=== PATIENT | male | born 1995 | race Caucasian/White ===

== ENCOUNTER 2019-12-14 17:59 | Outpatient (CLI) | payer BC, SELFPAY | END 2019-12-14 18:00 | disposition home or self-care (01) | LOC: ANHLAB 18:02 | PROVIDERS: PCP Family Medicine; Visit Provider Family Medicine | DX: A23.9 Brucellosis, unspecified (principal) | CPT/HCPCS: 36415; 86622 ==

== ENCOUNTER → 2020-08-05 16:18 | Outpatient (CLI) | payer BC, SELFPAY ==
--- NOTE | ~2020-08-05 | XR_ITS ---
XR elbow RT min 3V 08/05/2020 16:58 Indication: Right elbow pain Procedure: 4 views right elbow Comparison: No prior studies for comparison. Findings: Possible nondisplaced radial head fracture. Large joint effusion. No other fracture appreci ated. No foreign bodies. Impression: 1: Possible nondisplaced radial head fracture with large joint effusion. Recommend follow-up x-rays i n 7-10 days following conservative therapy. Reviewed, dictated and finalized at location A. Impression: 1: Possible nondisplaced radial head fracture with large joint effusion. Recomm end follow-up x-rays in 7-10 days following conservative therapy.
== END ==
PROVIDERS: PCP Family Medicine; Visit Provider Family Medicine
DX: S59.901A Unspecified injury of right elbow, initial encounter (principal)
CPT/HCPCS: 73080

== ENCOUNTER 2024-08-31 10:43 | Emergency (ER) | payer BC, SELFPAY ==
--- NOTE | 2024-08-31 10:48 | ED_ITS ---
HPI - General Adult General Chief complaint: Nausea/Vomiting/Diarrhea Stated complaint: TROUBLE EATING & SLEEPING/NAUSEA/LOW BLOOD SUGAR Time Seen by Provider: 08/31/24 11:03 Mode of arrival: ambulatory Limitations: no limitations History of Present Illness HPI narrative: 29-year-old male presents with concern for nausea, decreased appetite, fatigue for 1 month. Reports he felt shaky this morning and is concerned about his blood sugar. He does not have a history of problems with his blood sugar. He reports the symptoms started 1 month ago when he had cold symptoms. He saw his primary doctor that. Reports he initially had vomiting and diarrhea he has not had any vomiting or diarrhea 2 weeks. Reports his appetite is low and he can not eat very much not feeling nauseated. He reports his bowel movements are normal, is having a bowel movement daily. He occasionally has taken Pepto- Bismol and Mylanta without relief. He denies abdominal pain. Denies flank pain. Denies dysuria frequency, urgency, hematuria. Reports he has had a low back ache 1 month ago when this all started but that has since resolved and LEs he has done a lot of heavy lifting at work. complaint: Nausea Related Data Allergies Allergy/AdvReac Type Severity Reaction Status Date / Time No Known Allergies Allergy Verified 08/31/24 11:01 Review of Systems Review of Systems: CONSTITUTIONAL: Reports malaise, fatigue. Denies chills, sweats, or fever. EYES: Denies visual changes, redness, or discharge. ENT: Denies rhinorrhea, congestion, sinus pain, otalgia or sore throat. CARDIOVASCULAR: Denies chest pain, palpitations, or edema. RESPIRATORY: Denies cough or dyspnea. GASTROINTESTINAL: Denies abdominal pain, vomiting, diarrhea, bloody, or mucous stools. Reports nausea and decreased appetite GENITOURINARY: Denies dysuria or hematuria. MUSCULOSKELETAL: Reports occasional low back ache. Denies joint pain, or myalgia. NEUROLOGIC: Denies numbness, weakness, or headache. All systems reviewed & are unremarkable except as noted in HPI and below PMFSH Past Medical History Medical History Generalized anxiety disorder Social History Social History Smoking status: Never smoker Alcohol intake: never Substance use: never Substance use type: does not use Do You Feel Safe in your Home?: Yes Lack of Transportation: No Lack of Food: Never True Current Housing: I Have Housing Concerned About Future Housing: No Difficulty Paying Gas/Electric Bills: No Difficulty Paying for Meds: No Currently Unemployed: No Education: Bachelor's Degree Difficulty w/ Childcare or Family Care: No Living arrangements: with family Occupation/Education: occupation Additional occupation/education comments: [employer] Gender identity (if verbalized by the patient): Male Sexual Orientation (if Verbalized by the Patient): Straight or Heterosexual Comments At time of signature, agree with nursing past medical, surgical, social and family history. There is no relevant family history pertinent to the presenting complaint Exam Narrative: GENERAL: Well-appearing, well-nourished, and in no acute distress. HEAD: Normocephalic, atraumatic. EYES: PERRLA, sclera clear, and EOMI. No nystagmus. ENT: Nares clear. Mucous membranes moist. NECK: Supple. CHEST: No respiratory distress. Clear to auscultation. No bony deformities, no asymmetry. Speaks in full sentences. HEART: Regular rate and rhythm. ABDOMEN: Soft, nontender, nondistended, normal active bowel sounds, no palpable masses. EXTREMITIES: Normal range of motion. No edema. Normal strength and sensation. SKIN: Warm, dry, no visible rash. NEURO: Alert and oriented x3. PSYCH: Normal mood and affect Course Course Emergency Course: Patient is aware of diagnosis, understands and agrees to treatment plan. Anticipatory guidance given. Patient agrees to follow-up as directed and is aware of reasons to seek care at the emergency department. Portions of this record may have been created with voice recognition software Level of Care: Express Care Visit Vital Signs Vital signs: Reviewed. Medical Decision Making MDM Narrative Medical decision making narrative: The patient was evaluated by myself in the express care. History is obtained from patient who is an independent historian and physical exam was performed.? Available medical records were reviewed at this time. ? Exam findings show no acute concerns or changes; patient is non-toxic appearing and is in no distress. Patient is appropriate for outpatient treatment and follow-up. ? I have evaluated and discussed social determinants of health with the patient that could potentially impact subsequent diagnosis and treatment plans. ? Differential diagnosis and treatment plan were discussed with the patient. Patient agrees with discussion and after shared medical decision making agrees with plan of care. All questions were answered to the patient's satisfaction. Critical Care Time Critical Care Time Critical Care Time: No Discharge Plan Discharge Clinical Impression: Nausea Patient Disposition: Home Condition: Stable Instructions: Diet for Stomach Ulcers and Gastritis (ED) Additional Instructions: Take medications as prescribed Wheezing a follow-up appoint with your primary care doctor for further evaluation. Stay hydrated. Take small sips of fluid containing electrolytes frequently. You should go to the hospital if you experience return of persistent nausea and vomiting that does not resolve and does not allow you to tolerate any food or fluids, persistent fevers for greater than 2-3 more days, increasing abdominal pain that persists despite medications, persistent diarrhea, dizziness, syncope (fainting), or for any other concerns. Patient Language: Greenlandic Prescriptions: New omeprazole 40 mg capsule,delayed release(DR/EC) 40 mg PO DAILY Qty: 14 0RF ondansetron 4 mg tablet,disintegrating 4 mg PO Q8H PRN (Reason: nausea and vomiting) Qty: 20 0RF Follow-up/Referrals: Baldev Molina MD [Primary Care Provider] - Stand Alone Forms: Work/School Release IP Time of Disposition: 11:30
[2024-08-31 11:01] VITALS: BP 111/81; PULSE 84; RESP 18; TEMP 36.2; O2SAT 98
[2024-08-31 11:13] LABS: Glucose Point of Care 111 mg/dl (65-105)
== END 2024-08-31 12:25 | disposition home or self-care (01) ==
PROVIDERS: Emergency Provider Nurse Practitioner; PCP Family Medicine
DX: R11.0 Nausea (principal)
CPT/HCPCS: 82948; 99213; G0463